=== PATIENT | male | born 1945 | race Caucasian/White ===

== ENCOUNTER → 2017-11-08 | Outpatient (CLI) | payer MEDICARE ==
[~2017-11-08] MED LIST: ATOR40TA78 PO; CARV12.52 PO; DICY10CA3 PO; GLIM2TAB2 PO; INSU100I13 SQ-INSULIN; OMEP-110 PO; ONDA8TAB16 SL; RAMI10CA PO; SAXA1TBM2 PO
== END | disposition home or self-care (01) ==
LOC: CFH 07:32
PROVIDERS: ATTEND Surgery
DX: Z01.818 Encounter for other preprocedural examination (principal); K21.9 Gastro-esophageal reflux disease without esophagitis; E66.01 Morbid (severe) obesity due to excess calories
CPT/HCPCS: 74241

== ENCOUNTER → 2020-04-19 | Outpatient (CLI) | payer MEDICARE ==
[~2020-04-19] MED LIST changes: -GLIM2TAB2 PO; +GLIM2TAB7 PO; -RAMI10CA PO; +RAMI10CA59 PO
== END | disposition home or self-care (01) ==
LOC: CVU 09:35
PROVIDERS: ATTEND Internal Medicine Cardiovascular Disease
DX: I34.8 Other nonrheumatic mitral valve disorders (principal); I10 Essential (primary) hypertension
CPT/HCPCS: 93306

== ENCOUNTER 2020-12-16 12:30 | Outpatient (CLI) | payer MEDICARE ==
[2020-12-16] MEDS ORDERED: REGADENOSON 0.4 MG/5 ML SYRINGE ONE (13:13)
[2020-12-30] MEDS ORDERED: ASCO100018 PO (09:39)
[2020-12-30] MEDS ORDERED: MULT-751 PO (09:39)
[2020-12-30] MEDS ORDERED: INSU100C SQ-INSULIN (09:39)
[2020-12-30] MEDS ORDERED: INSU100V8 SQ (09:39)
[2020-12-30] MEDS ORDERED: FEXO1TAB25 PO (09:39)
[2020-12-30] MEDS ORDERED: ALPH200T2 PO (09:39)
[2020-12-30] MEDS ORDERED: CART1TAB4 PO (09:39)
[2020-12-30] MEDS ORDERED: GABA600T7 PO (09:39)
[2020-12-30] MEDS ORDERED: ATOR-2 PO (09:39)
[2020-12-30] MEDS ORDERED: CHOL10003 PO (09:39)
[2020-12-30] MEDS ORDERED: HYDR50TA99 PO (09:39)
[2020-12-30] MEDS ORDERED: GABA300C PO (09:39)
[2020-12-30] MEDS ORDERED: IBUP200T49 PO (09:39)
[2020-12-30] MEDS ORDERED: VITA400C43 PO (09:39)
[2020-12-30] MEDS ORDERED: LIDO1ADH72 TD (10:03)
[2020-12-30] MEDS ORDERED: GUAI-103 PO (10:03)
== END 2020-12-17 23:59 | disposition home or self-care (01) ==
LOC: CFH 12:30
PROVIDERS: ATTEND Internal Medicine Cardiovascular Disease
DX: Z01.810 Encounter for preprocedural cardiovascular examination (principal)
CPT/HCPCS: 78452; 93017; A9502; J2785

== ENCOUNTER → 2020-12-30 | Outpatient (CLI) | payer MEDICARE ==
[~2020-12-30] MED LIST changes: +ALPH200T2 PO; +ASCO100018 PO; +ATOR-2 PO; +CART1TAB4 PO; +CHOL10003 PO; +FEXO1TAB25 PO; +GABA300C PO; +GABA600T7 PO; +GUAI-103 PO; +HYDR50TA99 PO; +IBUP200T49 PO; +INSU100C SQ-INSULIN; +INSU100V8 SQ; +LIDO1ADH72 TD; +MULT-751 PO; +VITA400C43 PO
[2020-12-30 10:18] LABS: BASOPHILS % (AUTO) 0 % (0-1); EOSINOPHILS % (AUTO) 4 % (1-7); LYMPHOCYTES % (AUTO) 20 % (22-44); MEAN CORPUSCULAR HEMOGLOBIN 32.5 pg (27.5-34.5); MEAN CORPUSCULAR HGB CONC 33.7 g/dL (33.2-36.2); MEAN PLATELET VOLUME 7.6 fL (7.4-10.4); MONOCYTES % (AUTO) 11 % (2-9); NEUTROPHILS % (AUTO) 66 % (42-75); PLATELET COUNT 157 x10^3/uL (130-400); RED BLOOD COUNT 4.61 x10^6/uL (4.38-5.82); RED CELL DISTRIBUTION WIDTH 13.1 % (9.4-14.8)
[2020-12-30 10:36] LABS: ALBUMIN 3.9 g/dL (3.4-5.0); CHLORIDE 106 mmol/L (98-107)
[2020-12-30 10:41] LABS: ALANINE AMINOTRANSFERASE 34 U/L (12-78); ALKALINE PHOSPHATASE 75 U/L (45-117); ANION GAP 5 mmol/L (5-15); BILIRUBIN,TOTAL 0.5 mg/dL (0.2-1.0); CREATININE 1.56 mg/dL (0.7-1.3); TOTAL PROTEIN 6.9 g/dL (6.4-8.2)
[2020-12-30 10:48] LABS: MD NO
[2020-12-30 14:23] LABS: INTERNATIONAL NORMALIZED RATIO 1.01 (0.93-1.1); PROTHROMBIN TIME 10.8 Seconds (9.6-11.5)
== END | disposition home or self-care (01) ==
LOC: STAR 08:54
PROVIDERS: ATTEND Neurological Surgery
DX: Z01.818 Encounter for other preprocedural examination (principal); M48.062 Spinal stenosis, lumbar region with neurogenic claudication; I44.0 Atrioventricular block, first degree; I25.2 Old myocardial infarction
CPT/HCPCS: 36415; 71046; 80053; 83036; 85025; 85610; 85730; 93005

== ENCOUNTER → 2021-01-06 | Outpatient (CLI) | payer MEDICARE | END | disposition home or self-care (01) | LOC: STAR 08:51 | PROVIDERS: ATTEND Anesthesiology | DX: Z20.822 Contact with and (suspected) exposure to COVID-19 (principal) | CPT/HCPCS: U0003; U0005 ==